=== PATIENT | female | born 1955 | race Hispanic/Latino ===

== ENCOUNTER 2017-04-08 13:07 | Emergency (ER) | payer BC, OTHER ==
[2017-04-08] MEDS ORDERED: ISOVUE-370 76%-LOCM 1 ML ONE (13:44)
[2017-04-08 13:48] LABS: #Basophils 0.1 thou/uL (0.0-0.2); #Eosinphils 0.1 thou/uL (0.0-0.7); #Lymphocytes 2.9 thou/uL (1.20-3.40); #Monocytes 0.5 thou/uL (0.11-0.59); #Neutrophils 6.1 thou/uL (1.40-6.50); %Basophils 0.7 % (0.0-1.0); %Eosinophils 1.4 % (0.0-10.0); %Lymphocytes 29.7 % (21.0-51.0); %Monocytes 5.5 % (0.0-10.0); %Neutrophils 62.6 % (42.0-75.0); Hemoglobin 13.9 g/dL (12.0-16.0); Mean Corpuscular HGB CONC 34.6 g/dL (32.0-36.0); Mean Corpuscular Hemoglobin 30.8 pg (27.0-31.0); Mean Corpuscular Volume 89.1 fl (81.0-99.0); Mean Platelet Volume 7.4 fL (7.4-10.4); Platelet Count 260 thou/uL (130-400); RBC Distribution Width 11.6 % (11.5-14.5); White Blood Cell (WBC) Count 9.7 thou/uL (4.8-10.8)
[2017-04-08 13:48] LABS: Bilirubin Negative (Negative); Blood, Urine Negative (Negative); Clarity CLEAR (Clear); Glucose, Urine (Dipstick) Negative (Negative); Leukocyte Trace (Negative); Nitrite Negative (Negative); Protein, Urine (Dipstick) Negative (Neg-Trace); Specific Gravity, Urine 1.019 (1.002-1.036)
[2017-04-08 13:50] LABS: Bacteria/HPF None Seen HPF (None Seen); Hyaline Casts/LPF 4-6 HYALINE CAST LPF (0-3 Hyaline); Pathc Cast-AUWi Flag 0.54 (0-2.49); Squamous Epithelial 0-3 HPF (0-3)
[2017-04-08 14:09] LABS: ALT (SGPT) 35 U/L (8-55); AST (SGOT) 25 U/L (5-34); Albumin 4.2 g/dL (3.4-4.8); Alkaline Phosphatase 76 U/L (40-150); Anion Gap 13 mmol/L (10-20); BUN (Urea Nitrogen) 10 mg/dL (9.8-20.1); Bilirubin, Total 0.9 mg/dL (0.2-1.2); Calc. Creatinine Clearance 0 mL/min (70-130); Calcium 9.8 mg/dL (7.8-10.44); Carbon Dioxide 30 mmol/L (23-31); Chloride 99 mmol/L (98-107); Estimated GFR-MDRD 89; Globulin 3.5 g/dL (2.4-3.5); Glucose 152 mg/dL (80-115); Potassium 3.3 mmol/L (3.5-5.1); Protein, Total 7.7 g/dL (6.0-8.3); Sodium 139 mmol/L (136-145)
[2017-04-08] MEDS ORDERED: Ondansetron HCl/PF 4 MG/2 ML Vial ONE (17:27)
--- NOTE | 2017-04-08 19:14 | CT ---
CT ABDOMEN AND PELVIS WITH CONTRAST: Technique: Multiple axial tomograms were obtained through the abdomen and pelvis with IV enhancement. History: Lower abdominal pain. FINDINGS: Lung bases are clear. The liver shows evidence of fatty infiltration. The spleen and pancreas are unremarkable. The stomach and duodenum are unremarkable. The adrenal glands are unremarkable. The kidneys are unremarkable. No hydronephrosis. Ureters appear normal. Urinary bladder unremarkable. Small bowel loops are normal caliber. Appendix is not identified and may be surgically absent. The pa tient is post cholecystectomy. Aorta normal caliber. No adenopathy identified. Images through the pelvis reveal an abnormal appearing uterus. The endometrium and endometrial cavity appears enlarged and is diffusely low attenuation which suggests possible blood product within the d ilated endometrial cavity. Endometrial sampling should be considered. The uterus fund appears enlarge d. The uterine fundus appears enlarged. Ovaries appear unremarkable. IMPRESSION: Abnormal uterus. The uterus is enlarged and endometrial cavity appears enlarged and shows no accumula tion as discussed above. Recommend PAINT STOCK CLERK consultation. Pelvic ultrasound is suggested. POS: JAZMYN
[2017-04-08] MEDS ORDERED: Fentanyl 100 MCG/2 ML VIAL ONE (19:19)
--- NOTE | 2017-04-08 20:37 | ULT ---
PELVIC ULTRASOUND: Technique: Transabdominal and endovaginal ultrasound of the pelvis performed. History: Exam is performed in follow up to the CT abdomen/pelvis which showed an abnormal appearing u terus and endometrium. FINDINGS: On ultrasound the uterine measurements are within normal range recorded at approximately 6.0 x 2.0 x 3.5 cm. The endometrium does appear prominent. It is poorly defined but is diffusely increased, proba alirio measuring in the 1.2 cm range. This may explain the diffuse decreased density noted in the endome trium on CT. There is a well defined hypoechoic mass like area in the lower uterine segment which cou ld represent a collection of complex blood or fluid. The right ovary is identified and appears unremarkable. Color doppler with spectral analysis shows fl ow to this ovary. The left ovary is not identified. IMPRESSION: Endometrium appears abnormal and there is a loculated complex fluid collection or hypoechoic mass les ion in the lower uterine segment. Recommend HAND FINISHER consultation and consider further evaluation of the p angel with MRI of pelvis. POS: JAZMYN
== END 2017-04-08 20:10 | disposition home or self-care (01) ==
LOC: ERS 13:07
DX: N39.0 Urinary tract infection, site not specified (principal); N85.8 Other specified noninflammatory disorders of uterus; I10 Essential (primary) hypertension; M81.0 Age-related osteoporosis without current pathological fracture; F17.210 Nicotine dependence, cigarettes, uncomplicated
CPT/HCPCS: 36415; 74177; 76856; 80053; 81003; 81015; 85025; 87086; 96361; 96374; 96375; J2270; J2405; J3010

== ENCOUNTER 2018-07-20 11:26 | Observation (INO) | payer OTHER ==
[2018-07-20 12:13] LABS: #Basophils 0.1 thou/uL (0.0-0.2); #Eosinphils 0.2 thou/uL (0.0-0.7); #Lymphocytes 3.2 thou/uL (1.20-3.40); #Monocytes 0.7 thou/uL (0.11-0.59); #Neutrophils 5.9 thou/uL (1.40-6.50); %Basophils 0.8 % (0.0-1.0); %Eosinophils 2.2 % (0.0-10.0); %Monocytes 6.5 % (0.0-10.0); %Neutrophils 58.5 % (42.0-75.0); Hemoglobin 14.3 g/dL (12.0-16.0); Mean Corpuscular HGB CONC 34.5 g/dL (32.0-36.0); Mean Corpuscular Hemoglobin 29.7 pg (27.0-31.0); Mean Platelet Volume 7.3 fL (7.4-10.4); Platelet Count 223 thou/uL (130-400); Red Blood Cell (RBC) Count 4.81 mill/uL (4.20-5.40); White Blood Cell (WBC) Count 10.1 thou/uL (4.8-10.8)
[2018-07-20] MEDS ORDERED: Nitroglycerin 0.4 MG TAB 1 EACH ONE (12:21)
[2018-07-20] MEDS ORDERED: Aspirin Chewable 81 MG TAB ONE (12:21)
--- NOTE | 2018-07-20 12:25 | RAD ---
Portable chest: HISTORY: Chest pain COMPARISON: none FINDINGS: Lung roth are clear. Heart and mediastinum appear unremarkable. Vascularity is normal. Visualized osseous structures unremarkable. IMPRESSION: No acute finding
[2018-07-20 12:34] LABS: ALT (SGPT) 28 U/L (8-55); AST (SGOT) 23 U/L (5-34); Alkaline Phosphatase 76 U/L (40-150); Anion Gap 14 mmol/L (10-20); BUN (Urea Nitrogen) 11 mg/dL (9.8-20.1); Bilirubin, Total 0.7 mg/dL (0.2-1.2); Calc. Creatinine Clearance 0 mL/min (70-130); Calcium 9.5 mg/dL (7.8-10.44); Carbon Dioxide 26 mmol/L (23-31); Chloride 104 mmol/L (98-107); Estimated GFR-MDRD 87; Globulin 2.9 g/dL (2.4-3.5); Glucose 169 mg/dL (80-115); Potassium 3.6 mmol/L (3.5-5.1); Protein, Total 6.9 g/dL (6.0-8.3); Sodium 140 mmol/L (136-145)
[2018-07-20] MEDS ORDERED: Ketorolac Tromethamine 30 MG/ML VIAL ONE (13:14)
[2018-07-20] MEDS ORDERED: Acetaminophen 325 MG TAB PO PRN (14:14)
--- NOTE | 2018-07-20 14:45 | RAD ---
TWO VIEW CHEST: HISTORY: Rales noted on physical exam. Chest pain. FINDINGS: Lung roth are clear. No infiltrate or effusion seen. Vasculature within normal range. Heart and mediastinum unremarkable and stable. No change from prior exam of 2015. IMPRESSION: No acute process. POS: OFF
[2018-07-20 15:00] VITALS: BMI 22.1
[2018-07-20 17:05] LABS: Troponin I Less than 0.010 ng/mL (< 0.028)
[2018-07-20 17:09] LABS: Cardiac Risk 5.5 (Less than 4.5); Cholesterol 177 mg/dl (< 200 Desired); HDL Cholesterol 32 mg/dL (>60 Neg Risk)
[2018-07-20 17:29] LABS: Triglycerides 589 mg/dL (Less than 150)
[2018-07-20 17:59] LABS: Troponin I Less than 0.010 ng/mL (< 0.028)
--- NOTE | 2018-07-20 19:09 | HP ---
CHIEF COMPLAINT: Chest pain. HISTORY OF PRESENT ILLNESS: This patient is a 62-year-old female, who was admitted here in August of 2015 with an episode of chest pain and fever. At that time, the patient had a stress test, which was unremarkable. The patient returns to the emergency department today with a complaint of chest pain. The patient states that, yesterday early in the day, she developed the onset of right parasternal chest pain and a "funny" sensation in the sternal area. She states that it feels a bit restricted when she tries to take a deep breath. She also has a mild cough that is wet but nonproductive. She has mild nausea. She describes the pain as a pressure-like sensation that is 10/10 at times. It has been fairly consistent, but slightly worse today than yesterday. It is positional and gets worse when she moves her torso [id number]. She also reports that she has been taking an anti-inflammatory for the last week, given to her by her physician. She believes it was meloxicam. Says that it also feels like she is having food stick in the epigastric area when she eats and her bowels have been a bit sluggish. She states that the pain radiates through to her mid back area at the same level. REVIEW OF SYSTEMS: As noted, the patient reported a flare of arthritis-type pain about a week ago. She reports occasional tingling in her hands. She also says that she occasionally has some blurry vision, and she reports that she does have a fair amount of stress that she and her have taken on the raising of a 6-year-old grandchild. PAST MEDICAL HISTORY: Hypertension. PAST SURGICAL HISTORY: Cholecystectomy. FAMILY HISTORY: Father had CHF and CVA. Mother of hepatitis. She has brothers with heart disease. Says there are number of extended family members who have had stroke. SOCIAL HISTORY: The patient occasionally smokes a cigarette, not daily. She occasionally has a small amount of alcohol, not routinely. She denies drugs. She is . She is full code. Her would be her surrogate decision maker. ALLERGIES: NONE. CURRENT MEDICATIONS: 1. Aspirin 81 mg p.o. daily. 2. Hydrochlorothiazide 12.5 mg one p.o. daily. PHYSICAL EXAMINATION: VITAL SIGNS: Blood pressure 125/63, pulse 72, respirations 16, temperature 98.6, and O2 saturation 95% on room air. GENERAL APPEARANCE: Age-appropriate female, in no distress. She is awake, alert, oriented, pleasant, and cooperative. HEENT: PERRL. No OP lesions. NECK: Supple and symmetric. No lymphadenopathy, JVD, or carotid bruits. HEART: Regular rate and rhythm without murmurs, gallops, or rubs. LUNGS: Reveal right basilar rales with no wheezes or rhonchi. Fair air exchange. ABDOMEN: Soft, nondistended. There is very mild tenderness to palpation in the epigastrium. No hepatosplenomegaly. EXTREMITIES: No cyanosis, clubbing, or edema. MUSCULOSKELETAL: Reveals tenderness to palpation at the right parasternal border, which seems to reproduce the pain, the patient is describing. NEUROLOGIC: Appears to be fully intact. Spontaneously moving all extremities with normal sensation throughout. No focal deficits. PSYCHIATRIC: Normal affect and behavior. LABORATORY DATA: White count 10.1, hemoglobin 14.3. Sodium 140, potassium 3.6, chloride 104, CO2 is 26, BUN 11, creatinine 0.68, glucose 169, calcium 9.5, AST 23, and ALT 28. Troponin less than 0.01. Albumin 4.0. Chest x-ray shows no acute findings. EKG shows sinus rhythm at 72 beats per minute with no ST or T-wave changes. EMERGENCY ROOM COURSE: The patient received sublingual nitroglycerin, Toradol 15 mg IV x1, and aspirin 324 p.o. IMPRESSION AND PLAN: 1. Chest pain. The patient has a HEART score of 3. She did have some improvement with the nitroglycerin. Her symptoms appear to be largely musculoskeletal in nature and likely represent costochondritis. However, given her history of tobacco abuse and hypertension and her HEART score of 3, the patient will be placed on observation, remained on telemetry, and continued to have serial cardiac isoenzymes monitored. She had a dose of Toradol and she has been taking meloxicam over the past week, during time which this actually developed, making unlikely that further anti-inflammatories would be beneficial. She may also have a bit of gastritis or esophagitis, we will cover her with PPI as well. 2. Hypertension, well controlled. Continue her hydrochlorothiazide. 3. Mild hyperglycemia. We will recheck as this was not a fasting number, it is likely normal. 4. Abnormal lung exam with rales on the right base. The patient does have a bit of a cough that she describes as wet, but nonproductive as well. We will go ahead and cover with some oral antibiotics. Job ID: [id number]
[2018-07-20] MEDS: Cefdinir 300 MG CAP PO SCH (21:03)
[2018-07-21 05:12] LABS: #Basophils 0.1 thou/uL (0.0-0.2); #Eosinphils 0.3 thou/uL (0.0-0.7); #Lymphocytes 3.4 thou/uL (1.20-3.40); #Monocytes 0.5 thou/uL (0.11-0.59); #Neutrophils 5.2 thou/uL (1.40-6.50); %Basophils 1.2 % (0.0-1.0); %Eosinophils 3.3 % (0.0-10.0); %Lymphocytes 35.5 % (21.0-51.0); %Monocytes 5.4 % (0.0-10.0); %Neutrophils 54.7 % (42.0-75.0); Hemoglobin 13.9 g/dL (12.0-16.0); Mean Corpuscular Hemoglobin 29.5 pg (27.0-31.0); Mean Corpuscular Volume 86.8 fL (78.0-98.0); Mean Platelet Volume 7.4 fL (7.4-10.4); Platelet Count 205 thou/uL (130-400); Red Blood Cell (RBC) Count 4.72 mill/uL (4.20-5.40); White Blood Cell (WBC) Count 9.5 thou/uL (4.8-10.8)
[2018-07-21 05:32] LABS: Anion Gap 11 mmol/L (10-20); BUN (Urea Nitrogen) 11 mg/dL (9.8-20.1); Calc. Creatinine Clearance 67 mL/min (70-130); Calcium 9.1 mg/dL (7.8-10.44); Carbon Dioxide 25 mmol/L (23-31); Chloride 108 mmol/L (98-107); Estimated GFR-MDRD 86; Glucose 132 mg/dL (80-115); Sodium 140 mmol/L (136-145)
[2018-07-21] MEDS: Cefdinir 300 MG CAP PO SCH (08:59)
[2018-07-21] MEDS ORDERED: DULoxetine 60 MG CAP PO SCH (09:00)
[2018-07-21] MEDS ORDERED: Hydrochlorothiazide 25 MG TAB PO SCH (09:00)
[2018-07-21] MEDS ORDERED: Aspirin 81 mg Enteric Coated Tablet PO SCH (09:00)
[2018-07-21] MEDS ORDERED: Enoxaparin Sodium 40 MG/0.4 ML SYRINGE SC SCH (09:00)
[2018-07-21] MEDS ORDERED: Fenofibrate Nanocrystallized 145 MG TAB PO SCH (09:00)
[2018-07-21] MEDS ORDERED: ADENOSINE 60 MG/20 ML VIAL ONE (11:03)
--- NOTE | 2018-07-21 12:42 | NM ---
CARDIAC SPECT: CLINICAL HISTORY: 62-year-old female with chest pain, hypertension, smoker, and family history of coronary artery disea se. TECHNIQUE: A myocardial perfusion scan was performed using the single isotope one day protocol with technetium-9 9m sestamibi. 9 mCi were injected intravenously for the rest exam followed by 30 mCi for the stress e xam. Pharmacologic stress with Adenosine was monitored and interpreted by Dr. Clements. FINDINGS: Homogeneous tracer distribution is seen in the myocardial segments on stress and rest images without fixed or reversible defects. GATED SPECT LVEF: 58%. WALL MOTION EXAM: Normal. IMPRESSION: Normal myocardial perfusion scan. POS: TPC
[2018-07-21 13:39] VITALS: BP 153/80; TEMP 98.5
--- NOTE | 2018-07-21 23:53 | DIS ---
DATE OF ADMISSION: 07/20/2018 DATE OF DISCHARGE: 07/21/2018 CONDITION: At the time of discharge, stable and improved. DISCHARGE DIAGNOSES: 1. Chest pain, noncardiac, likely musculoskeletal. Acute coronary syndrome ruled out. 2. Hypertension. 3. Mild hyperglycemia. DISCHARGE MEDICATIONS: New medication Omnicef 300 mg p.o. b.i.d., TriCor 145 mg daily, Protonix 40 mg daily. Resume home medications as follows: 1. Aspirin 81 mg daily. 2. Hydrochlorothiazide 25 mg daily. 3. Amlodipine 5 mg daily. 4. [place]-3 fish oil 300 mg daily. 5. Cymbalta 60 mg daily. 6. Meloxicam 15 mg daily. PRIMARY CARE PHYSICIAN: Dr. Frank Aguayo. PROCEDURES DONE IN THE HOSPITAL: 1. Chest x-ray upon presentation which is negative for any evidence of pneumonia, edema, or effusion. 2. Nuclear medicine stress test which is negative for any evidence of fixed or reversible defect. EF estimated at 58%. HISTORY OF PRESENTING ILLNESS: Ms. Shen is a 62-year-old female with past medical history of hypertension, recent diagnosis of inflammatory arthritis, starting on meloxicam one week ago, who presented to the emergency room with complaints of chest pain which was 10/10 in intensity. It was associated with some mild nonproductive cough and was rather positional. She also had the feeling of heartburn and feeling that food gets stuck in her throat. Upon presentation, she was hemodynamically stable. Her labs were within normal limit. Cardiac enzymes were negative and chest x-ray was stable. She was admitted with a presumptive diagnosis of chest pain, rule out ACS. Please see admission history and physical dictated by Dr. Castro from yesterday. HOSPITAL COURSE: The patient remained stable throughout the rest of her hospitalization. She was started empirically on oral antibiotics given her cough thinking that it might be some acute upper respiratory tract infection. Nuclear medicine stress test was ordered, which was negative for any evidence of ACS. EF was 58%. Lipid panel was checked and triglycerides were very high at 589. Even though the patient has been taking fish oil for quite some time, she has hypertriglyceridemia which is a risk factor in addition to hypertension, age, and female sex that she has already. She was started on TriCor and was educated about the side effects. She is encouraged to follow up with her primary care physician, Dr. Frank Aguayo for followup. Repeat lipid panel should be checked within the next 3 months. She is also being started on proton pump inhibitors given the fact that she is on meloxicam for her inflammatory arthritis and she has been having some symptoms to suggest gastroesophageal reflux disease. She was seen and examined prior to discharge. PHYSICAL EXAMINATION: VITAL SIGNS: This morning, temperature 98.5, pulse of 70, respirations 24, saturating 96% on room air, blood pressure 153/80. GENERAL: No acute distress. Awake, alert, and oriented x3. CHEST: Clear to auscultation bilaterally. CARDIAC: Rate and rhythm regular. She will be discharged back home. Job ID: [id number]
[2018-07-22] MEDS ORDERED: DULoxetine 60 MG CAP PO SCH (09:00)
== END 2018-07-21 14:08 | disposition home or self-care (01) ==
LOC: ERS 11:26 → 2SW 13:07
PROVIDERS: ADMIT Internal Medicine; ATTEND Internal Medicine
DX: R07.89 Other chest pain (principal); I10 Essential (primary) hypertension; R73.9 Hyperglycemia, unspecified; M13.80 Other specified arthritis, unspecified site; F17.210 Nicotine dependence, cigarettes, uncomplicated; R09.89 Other specified symptoms and signs involving the circulatory and respiratory systems; Z79.1 Long term (current) use of non-steroidal anti-inflammatories (NSAID); Z79.82 Long term (current) use of aspirin; Z79.899 Other long term (current) drug therapy
CPT/HCPCS: 36415; 71045; 71046; 78452; 80048; 80053; 80061; 84484; 85025; 93005; 93017; 96372; 96374; A9500; G0378; J0153; J1650; J1885

== ENCOUNTER 2018-09-22 10:16 | Outpatient (CLI) | payer OTHER ==
--- NOTE | 2018-09-22 11:12 | MMO ---
Bilateral MAMMO Bilat Screen [facility]. CLINICAL HISTORY: Patient is 63 years old and is seen for screening. The patient has no family history of breast cancer. The patient has no personal history of cancer. VIEWS: The views performed were: bilateral craniocaudal with tomosynthesis; bilateral mediolateral oblique with tomosynthesis; and cleavage view with tomosynthesis. FILMS COMPARED: The present examination has been compared to prior imaging studies performed at [facility] on 12/25/2010, 02/16/2013, 10/04/2014 and 05/21/2016. MAMMOGRAM FINDINGS: There are scattered fibroglandular densities. There are benign appearing calcifications seen in the left breast. There are no suspicious masses, calcifications or architectural distortion in the right breast. There are no suspicious masses, suspicious calcifications, or new areas of architectural distortion. IMPRESSION: THERE IS NO MAMMOGRAPHIC EVIDENCE OF MALIGNANCY. A ROUTINE FOLLOW-UP MAMMOGRAM IN 1 YEAR IS RECOMMENDED. THE RESULTS OF THIS EXAM WERE SENT TO THE PATIENT. ACR BI-RADS Category 2 - Benign finding MAMMOGRAPHY NOTE: 1. A negative mammogram report should not delay a biopsy if a dominant of clinically suspicious mass is present. 2. Approximately 10% to 15% of breast cancers are not detected by mammography. 3. Adenosis and dense breasts may obscure an underlying neoplasm. Reported by: KRISTEN ACOSTA MD Electonically Signed: [id number]
== END 2018-09-22 10:17 | disposition home or self-care (01) ==
LOC: BICMAMMO 10:16
PROVIDERS: ATTEND Family Medicine
DX: Z12.31 Encounter for screening mammogram for malignant neoplasm of breast (principal)
CPT/HCPCS: 77063; 77067

== ENCOUNTER 2019-06-26 09:19 | Outpatient (CLI) | payer OTHER, MEDICARE ==
--- NOTE | 2019-06-26 10:28 | BD ---
DEXA SCAN: DATE: 06/26/2019. PROVIDED CLINICAL HISTORY: Osteoporosis. FINDINGS: Lumbar Spine: BMD (g/cm2) L1 0.750 T-Score: -2.2 L2 0.809 T-Score: -2.0 L3 0.754 T-Score: -3.0 L4 0.853 T-Score: -1.9 L1-L4 0.796 T-Score: -2.3 Left: Femoral Neck: 0.602 T-Score: -2.2 Total Femur: 0.883 T-Score: -0.5 Right: Femoral Neck: 0.603 T-Score: -2.2 Total Femur: 0.864 T-Score: -0.6 10-YEAR FRACTURE RISK: Major osteoporotic fracture 6.2%. Hip fracture 1.1%. Impression: Calculated bone mineral density meets WHO criteria for osteopenia and places the patient at increased risk for fracture. POS: MICHELLE
--- NOTE | 2019-06-26 10:35 | RAD ---
THORACIC SPINE RADIOGRAPHS 2 VIEWS: DATE: 06/26/2019. PROVIDED CLINICAL HISTORY: Age-related osteoporosis. FINDINGS: Thoracic alignment appears normal. Vertebral body heights are clear. Vascular calcification is seen . Pedicles appear intact. Mild multilevel thoracic disk degenerative changes are seen. IMPRESSION: Mild multilevel thoracic disk degenerative change. POS: MICHELLE
== END 2019-06-26 09:20 | disposition home or self-care (01) ==
LOC: BICMAMMO 09:19
PROVIDERS: ATTEND Internal Medicine Rheumatology
DX: M81.0 Age-related osteoporosis without current pathological fracture (principal); M51.34 Other intervertebral disc degeneration, thoracic region; M85.89 Other specified disorders of bone density and structure, multiple sites
CPT/HCPCS: 72070; 77080

== ENCOUNTER 2019-07-21 11:20 | Outpatient (CLI) | payer OTHER, MEDICARE ==
--- NOTE | 2019-07-21 12:29 | RAD ---
RADIOGRAPH CHEST 2 VIEWS: DATE: 07/21/2019 HISTORY: 63-year-old female with rheumatoid arthritis. Baseline chest radiograph for future comparison for ini tiation of new rheumatoid arthritis medication. FINDINGS: There is no airspace density, pulmonary edema, pleural effusion, pneumothorax, or cardiomegaly. IMPRESSION: No active cardiopulmonary disease.
== END 2019-07-21 11:21 | disposition home or self-care (01) ==
LOC: BICRAD 11:20
PROVIDERS: ATTEND Internal Medicine Rheumatology
DX: M05.79 Rheumatoid arthritis with rheumatoid factor of multiple sites without organ or systems involvement (principal)
CPT/HCPCS: 71046

== ENCOUNTER 2019-09-11 14:37 | Outpatient (CLI) | payer OTHER, MEDICARE ==
--- NOTE | 2019-09-11 15:41 | CT ---
CT ABDOMEN AND PELVIS WITH IV CONTRAST 09/11/2019 CLINICAL INFORMATION: Right-sided abdominal pain and bloating. Constipation. COMPARISON: 04/08/2017 Technique: Multiple contiguous axial CT images are obtained through the abdomen and pelvis with IV contrast. Cor onal reformatted images are provided. FINDINGS: Lower Chest: Lung bases are clear. Vessels: Vascular calcifications are again seen in the abdominal aorta and iliac arteries. Again, the re is suggestion of small varices within the left upper quadrant. Abdomen: Portal vein:Patent and is not dilated. Gallbladder: Surgically absent. Liver: Fatty infiltration. Liver is enlarged measuring 18.6 cm in craniocaudal dimensions. Spleen: within normal limits. Pancreas: within normal limits. Adrenals: within normal limits. Kidneys: Stable subcentimeter too small to characterize hypodense lesions in each kidney. Bowel: Normal caliber. Diminished attenuation is seen layering within the posterior aspect of the sto mach which is thought to be related to prior ingestion of a meal with contrast seen anteriorly. This does not have the appearance of bowel wall thickening. Appendix: Normal in caliber. Peritoneum: No ascites or free air; no fluid collection. Mesentery and Retroperitoneum: No enlarged mesenteric or retroperitoneal lymph nodes. Abdominal Wall: Focal area of asymmetry in the left breast inferiorly measuring 1.2 cm. However, timmy lar appearance was seen on the prior study in 2018, and this also appeared to been present on the study in 2009. This area would be better evaluated with mammography, but given stability over this pe riod of time suggests a benign finding and probably secondary to asymmetric breast parenchyma. Pelvis: Reproductive Organs: The diminished attenuation in the central uterus noted on the prior study is not evident on this exam. Pelvis within normal limits. Bladder: within normal limits. Bones: Degenerative changes are seen in the lower lumbar spine. IMPRESSION: 1. Hepatomegaly with fatty infiltration of the liver. 2. Stable small varices left upper quadrant unchanged since study in 2018 as well as CTA chest on 03/09. 3. Stable subcentimeter too small to characterize bilateral renal hypodense lesions. 4. Peripherally seen abnormality involving the uterus on prior exam is not appreciated on the current study. 5. Cholecystectomy. 6. No acute findings in the abdomen or pelvis.
== END 2019-09-11 14:38 | disposition home or self-care (01) ==
LOC: SCSCT 14:37
PROVIDERS: ATTEND Physician Assistant
DX: R10.11 Right upper quadrant pain (principal); K59.00 Constipation, unspecified; R14.0 Abdominal distension (gaseous); R16.0 Hepatomegaly, not elsewhere classified; K76.0 Fatty (change of) liver, not elsewhere classified; N28.9 Disorder of kidney and ureter, unspecified; N64.89 Other specified disorders of breast; Z90.49 Acquired absence of other specified parts of digestive tract
CPT/HCPCS: 74177

== ENCOUNTER 2020-03-11 09:51 | Outpatient (CLI) | payer OTHER, MEDICARE ==
--- NOTE | 2020-03-11 10:42 | ULT ---
Exam: Hepatic Doppler HISTORY: Hepatic steatosis. COMPARISON: None. FINDINGS: The head and proximal body of the pancreas have a normal echotexture. The remainder of the pancreas i s obscured by bowel gas. Heterogeneous echotexture of liver may be due to hepatic steatosis or hepatocellular disease. Subsequ ent limited evaluation for hepatic masses and intrahepatic biliary dilatation. The contour of the hepatic margin is maintained. Right hepatic lobe measures 18.6 cm. Common bile duct diameter is 1.2 cm. Gallbladder is not appreciated. Correlate for previous cholecyst ectomy. Spleen has a normal echotexture measuring 10.3 cm in maximum dimension. Hepatic Doppler: There is patency and appropriate directional flow involving the left hepatic vein, r ight hepatic vein, middle hepatic vein, main portal vein, right portal vein, left portal vein and hepatic artery. There is appropriate directional flow of the splenic vein and artery. IMPRESSION: 1. Normal hepatic Doppler. 2. Heterogeneous echotexture of the liver which is presumed to be due to hepatic steatosis. Transcribed Date/Time: 03/11/2020 11:38 AM
== END 2020-03-11 09:52 | disposition home or self-care (01) ==
LOC: BICULT 09:51
PROVIDERS: ATTEND Physician Assistant Medical
DX: K76.0 Fatty (change of) liver, not elsewhere classified (principal); R93.3 Abnormal findings on diagnostic imaging of other parts of digestive tract; R93.2 Abnormal findings on diagnostic imaging of liver and biliary tract
CPT/HCPCS: 76705

== ENCOUNTER 2020-03-15 11:48 | Outpatient (CLI) | payer OTHER, MEDICARE ==
--- NOTE | 2020-03-15 12:36 | MMO ---
Bilateral MAMMO Bilat Screen [facility]DI[facility]. CLINICAL HISTORY: Patient is 64 years old and is seen for screening. The patient has no family history of breast cancer. The patient has no personal history of cancer. VIEWS: The views performed were: bilateral craniocaudal with tomosynthesis and bilateral mediolateral oblique with tomosynthesis. FILMS COMPARED: The present examination has been compared to prior imaging studies performed at [facility] on 02/16/2013, 10/04/2014, 05/21/2016 and 09/22/2018. This study has been interpreted with the assistance of computer-aided detection. MAMMOGRAM FINDINGS: There are scattered fibroglandular densities. There are stable benign appearing calcifications seen in the left breast. There are no suspicious masses, suspicious calcifications, or new areas of architectural distortion. IMPRESSION: THERE IS NO MAMMOGRAPHIC EVIDENCE OF MALIGNANCY. A ROUTINE FOLLOW-UP MAMMOGRAM IN 1 YEAR IS RECOMMENDED. THE RESULTS OF THIS EXAM WERE SENT TO THE PATIENT. ACR BI-RADS Category 2 - Benign finding MAMMOGRAPHY NOTE: 1. A negative mammogram report should not delay a biopsy if a dominant of clinically suspicious mass is present. 2. Approximately 10% to 15% of breast cancers are not detected by mammography. 3. Adenosis and dense breasts may obscure an underlying neoplasm. Reported by: DARRYL SUBRAMANIAN MD Electonically Signed: [id number]
== END 2020-03-15 11:49 | disposition home or self-care (01) ==
LOC: BICMAMMO 11:48
PROVIDERS: ATTEND Family Medicine
DX: Z12.31 Encounter for screening mammogram for malignant neoplasm of breast (principal)
CPT/HCPCS: 77063; 77067

== ENCOUNTER 2020-05-04 14:33 | Emergency (ER) | payer MEDICARE, OTHER ==
--- NOTE | 2020-05-04 15:25 | RAD ---
CHEST TWO VIEW: 05/04/20 HISTORY: Dizziness. COMPARISON: Radiograph 07/21/19. FINDINGS: The lungs are clear. No pneumothorax or effusion. Multiple calcified left hilar lymph nodes. No acute osseous abnormality. IMPRESSION: No acute intrathoracic abnormality. POS: [facility]
[2020-05-04 15:26] LABS: #Basophils 0.1 thou/uL (0.0-0.2); #Eosinphils 0.2 thou/uL (0.0-0.7); #Lymphocytes 3.9 thou/uL (1.20-3.40); #Monocytes 0.7 thou/uL (0.11-0.59); #Neutrophils 5.6 thou/uL (1.40-6.50); %Monocytes 6.4 % (0.0-10.0); %Neutrophils 53.5 % (42.0-75.0); Hemoglobin 13.9 g/dL (12.0-16.0); Mean Corpuscular HGB CONC 32.7 g/dL (32.0-36.0); Mean Corpuscular Hemoglobin 27.9 pg (27.0-31.0); Mean Corpuscular Volume 85.4 fL (78.0-98.0); Mean Platelet Volume 7.8 fL (7.4-10.4); Platelet Count 279 thou/uL (130-400); RBC Distribution Width 12.1 % (11.5-14.5); Red Blood Cell (RBC) Count 4.97 mill/uL (4.20-5.40); White Blood Cell (WBC) Count 10.4 thou/uL (4.8-10.8)
[2020-05-04 15:40] LABS: ALT (SGPT) 27 U/L (8-55); AST (SGOT) 33 U/L (5-34); Alkaline Phosphatase 66 U/L (40-110); Anion Gap 13 mmol/L (10-20); BUN (Urea Nitrogen) 14 mg/dL (9.8-20.1); Bilirubin, Total 0.4 mg/dL (0.2-1.2); Calc. Creatinine Clearance 0 mL/min (70-130); Calcium 8.9 mg/dL (7.8-10.44); Carbon Dioxide 27 mmol/L (23-31); Chloride 106 mmol/L (98-107); Globulin 2.6 g/dL (2.4-3.5); Glucose 118 mg/dL (80-115); Potassium 3.5 mmol/L (3.5-5.1); Protein, Total 6.6 g/dL (5.8-8.1); Sodium 142 mmol/L (136-145)
--- NOTE | 2020-05-04 16:34 | CT ---
EXAM: CT brain without contrast HISTORY: Dizziness and chest pressure COMPARISON: 116 TECHNIQUE: Multiple contiguous axial images were obtained and a CT of the brain without contrast. FINDINGS: The brain is normal in morphology and attenuation without focal lesions or confluent areas of infarction. There is no evidence of hydrocephalus, intracranial hemorrhage, or extra-axial fluid collection. The calvarium and overlying soft tissues are unremarkable. The visualized paranasal sinuses and masto id air cells are well aerated. IMPRESSION: No evidence of acute intracranial abnormality
[2020-05-04] MEDS ORDERED: Aspirin 325 MG TAB ONE (16:58)
[2020-05-04] MEDS ORDERED: Meclizine HCl 25 MG TAB ONE (16:58)
[2020-05-04 17:50] LABS: Bilirubin Negative (Negative); Blood, Urine Negative (Negative); Clarity Clear (Clear); Glucose, Urine (Dipstick) Normal (Negative); Ketone, Urine Negative (Negative); Leukocyte Negative Leu/uL (Negative); Nitrite Negative (Negative); Protein, Urine (Dipstick) Negative (Neg-Trace); Specific Gravity, Urine 1.012 (1.002-1.036); Urobilinogen Normal mg/dL (Less than 2); pH, Urine 6.5 (5.0-9.0)
[2020-05-04] MEDS ORDERED: Diazepam 5 MG TAB ONE (18:16)
--- NOTE | 2020-05-07 10:30 | EKG ---
Test Reason : Blood Pressure : / mmHG Vent. Rate : 062 BPM Atrial Rate : 062 BPM P-R Int : 144 ms QRS Dur : 092 ms QT Int : 432 ms P-R-T Axes : 070 023 050 degrees QTc Int : 438 ms Normal sinus rhythm Normal ECG Confirmed by CLARK RIBEIRO, PAKO Felix ([id number]), business editor SHI THOMPSON ([id number]) on 05/07/2020 10:29:51 AM Referred By: Confirmed By:PAKO RODAS MD
== END 2020-05-04 19:09 | disposition home or self-care (01) ==
LOC: ERS 14:33
DX: H81.13 Benign paroxysmal vertigo, bilateral (principal); R29.700 NIHSS score 0; R07.89 Other chest pain; I10 Essential (primary) hypertension; Z79.899 Other long term (current) drug therapy; F17.210 Nicotine dependence, cigarettes, uncomplicated
CPT/HCPCS: 36415; 70450; 71046; 80053; 81003; 84484; 85025; 93005

== ENCOUNTER 2020-08-12 07:38 | Outpatient (CLI) | payer OTHER, MEDICARE | END 2020-08-12 07:39 | disposition home or self-care (01) | LOC: BICULT 07:38 | PROVIDERS: ATTEND Family Medicine | DX: R10.2 Pelvic and perineal pain (principal); N85.9 Noninflammatory disorder of uterus, unspecified | CPT/HCPCS: 76856 ==

== ENCOUNTER 2020-08-19 08:10 | Outpatient (CLI) | payer OTHER, MEDICARE | END 2020-08-19 08:11 | disposition home or self-care (01) | LOC: BICRAD 08:10 | PROVIDERS: ATTEND Internal Medicine Rheumatology | DX: M05.79 Rheumatoid arthritis with rheumatoid factor of multiple sites without organ or systems involvement (principal) | CPT/HCPCS: 71046 ==

== ENCOUNTER 2020-10-17 08:23 | Outpatient (CLI) | payer OTHER, MEDICARE | END 2020-10-17 08:24 | disposition home or self-care (01) | LOC: BICMAMMO 08:23 | PROVIDERS: ATTEND Internal Medicine Rheumatology | DX: M81.0 Age-related osteoporosis without current pathological fracture (principal) | CPT/HCPCS: 77080 ==

== ENCOUNTER 2020-10-29 19:12 | Inpatient (IN) | payer OTHER, MEDICARE ==
[~2020-10-29 19:12] MED LIST: Iopamidol-370 76% 500 ML 1 ML ONE
[2020-10-29 19:45] LABS: #Eosinphils 0.2 thou/uL (0.0-0.7); #Lymphocytes 2.5 thou/uL (1.20-3.40); #Monocytes 0.6 thou/uL (0.11-0.59); #Neutrophils 3.5 thou/uL (1.40-6.50); %Basophils 0.4 % (0.0-1.0); %Lymphocytes 36.8 % (21.0-51.0); %Monocytes 8.7 % (0.0-10.0); %Neutrophils 51.1 % (42.0-75.0); Hemoglobin 13.7 g/dL (12.0-16.0); Mean Corpuscular HGB CONC 35.6 g/dL (32.0-36.0); Mean Corpuscular Hemoglobin 30.4 pg (27.0-31.0); Mean Corpuscular Volume 85.3 fL (78.0-98.0); Mean Platelet Volume 7.5 fL (7.4-10.4); Platelet Count 233 thou/uL (130-400); RBC Distribution Width 11.5 % (11.5-14.5); Red Blood Cell (RBC) Count 4.51 mill/uL (4.20-5.40); White Blood Cell (WBC) Count 6.8 thou/uL (4.8-10.8)
[2020-10-29 20:03] LABS: ALT (SGPT) 14 U/L (8-55); AST (SGOT) 17 U/L (5-34); Albumin 4.2 g/dL (3.4-4.8); Alkaline Phosphatase 63 U/L (40-110); Anion Gap 13 mmol/L (10-20); BUN (Urea Nitrogen) 11 mg/dL (9.8-20.1); Bilirubin, Total 0.4 mg/dL (0.2-1.2); Calc. Creatinine Clearance 0 mL/min (70-130); Calcium 9.2 mg/dL (7.8-10.44); Carbon Dioxide 27 mmol/L (23-31); Chloride 104 mmol/L (98-107); Globulin 2.8 g/dL (2.4-3.5); Glucose 111 mg/dL (80-115); Potassium 3.6 mmol/L (3.5-5.1); Sodium 140 mmol/L (136-145)
[2020-10-29] MEDS ORDERED: Aspirin Chewable 81 MG TAB ONE (21:06)
[2020-10-29] MEDS ORDERED: Nitroglycerin 0.4 MG TAB 1 EACH ONE (21:06)
[2020-10-29] MEDS ORDERED: hydrALAZINE 20 MG/ML VIAL SLOW IVP PRN (22:24)
[2020-10-29] MEDS ORDERED: Zolpidem Tartrate 5 MG TAB PO PRN (22:25)
[2020-10-29] MEDS ORDERED: Bisacodyl 10 MG SUPP PR PRN (22:25)
[2020-10-29] MEDS ORDERED: Acetaminophen 325 MG TAB PO PRN (22:25)
[2020-10-29] MEDS ORDERED: Ibuprofen 200 MG TAB ONE (22:34)
[2020-10-29 23:20] LABS: Troponin I Less than 0.010 ng/mL (< 0.028)
[2020-10-30 00:16] VITALS: BMI 21.4
[2020-10-30 01:43] LABS: Troponin I Less than 0.010 ng/mL (< 0.028)
[2020-10-30 06:09] LABS: Albumin 3.8 g/dL (3.4-4.8); Anion Gap 12 mmol/L (10-20); BUN (Urea Nitrogen) 10 mg/dL (9.8-20.1); BUN/Creatinine Ratio 14.71; Calc. Creatinine Clearance 61 mL/min (70-130); Calcium 9.3 mg/dL (7.8-10.44); Carbon Dioxide 26 mmol/L (23-31); Chloride 107 mmol/L (98-107); Glucose 115 mg/dL (80-115); Potassium 3.6 mmol/L (3.5-5.1); Sodium 141 mmol/L (136-145)
[2020-10-30] MEDS ORDERED: Enoxaparin Sodium 40 MG/0.4 ML SYRINGE SC SCH (09:00)
[2020-10-30] MEDS: Amlodipine 10 MG TAB PO SCH (10:31)
[2020-10-30] MEDS: Aspirin Chewable 81 MG TAB PO SCH (10:32)
[2020-10-30] MEDS: DULoxetine 60 MG CAP PO SCH (10:32)
[2020-10-30] MEDS: Hydrochlorothiazide 25 MG TAB PO SCH (10:32)
[2020-10-30] MEDS: HYDROcodone/Acetaminophen 5/325 mg Tablet PO PRN (10:40)
[2020-10-30] MEDS ORDERED: Communication Order-Pharmacy FS SCH (12:45)
[2020-10-30] MEDS ORDERED: Potassium Chloride 20 MEQ TAB PO SCH (18:00)
[2020-10-30 18:47] LABS: SARS-CoV-2 PCR by NAA Not Detected (NotDetected)
[2020-10-30] MEDS ORDERED: Cyclobenzaprine 10 MG TAB PO PRN (19:13)
[2020-10-31] MEDS: Hydrochlorothiazide 25 MG TAB PO SCH (05:32)
[2020-10-31] MEDS: DULoxetine 60 MG CAP PO SCH (05:32)
[2020-10-31] MEDS: Aspirin Chewable 81 MG TAB PO SCH (05:32)
[2020-10-31] MEDS: Amlodipine 10 MG TAB PO SCH (05:32)
[2020-10-31] MEDS: HYDROcodone/Acetaminophen 5/325 mg Tablet PO PRN ×2 (07:49→17:17)
[2020-10-31] MEDS ORDERED: Iopamidol 370 76% 100 ML VIAL ONE (08:47)
[2020-10-31] MEDS ORDERED: Lidocaine 1% (PF) 30 ML VIAL ONE (11:22)
[2020-10-31] MEDS ORDERED: Midazolam HCl 2 mg/2 ml Vial ONE (11:50)
[2020-10-31] MEDS ORDERED: Fentanyl 100 MCG/2 ML VIAL ONE (11:50)
[2020-10-31] MEDS ORDERED: Acetaminophen/Codeine 30-300mg Tablet PO PRN (12:18)
[2020-10-31] MEDS ORDERED: Sodium Chloride 0.9% 200 ML IV PRN (12:18)
[2020-10-31] MEDS ORDERED: Sodium Chloride 0.9% 500 ML IV SCH (12:30)
[2020-10-31 13:15] VITALS: TEMP 98
[2020-10-31 15:48] VITALS: BP 114/76
== END 2020-10-31 18:25 | disposition home or self-care (01) | DRG 287 ==
LOC: ERS 19:12 → 3SE 22:09 → OBSVTOIN 10-31 13:41
PROVIDERS: ADMIT Internal Medicine; ATTEND Internal Medicine
PROC: 4A023N7 Measurement of Cardiac Sampling and Pressure, Left Heart, Percutaneous Approach (ICD-10-PCS; principal; 2020-10-31)
PROC: B2111ZZ Fluoroscopy of Multiple Coronary Arteries using Low Osmolar Contrast (ICD-10-PCS; 2020-10-31)
DX: I25.10 Atherosclerotic heart disease of native coronary artery without angina pectoris (principal); M19.90 Unspecified osteoarthritis, unspecified site; E87.6 Hypokalemia; I12.9 Hypertensive chronic kidney disease with stage 1 through stage 4 chronic kidney disease, or unspecified chronic kidney disease; N18.2 Chronic kidney disease, stage 2 (mild); Z20.822 Contact with and (suspected) exposure to COVID-19; G89.4 Chronic pain syndrome; K21.9 Gastro-esophageal reflux disease without esophagitis; Z79.82 Long term (current) use of aspirin; Z79.899 Other long term (current) drug therapy; Z87.891 Personal history of nicotine dependence; Z90.49 Acquired absence of other specified parts of digestive tract
CPT/HCPCS: 36415; 71045; 71275; 80053; 80069; 84443; 84484; 85025; 93005; 93458; 96372; 99152; G0378; J1650; J2001; J2250; J3010; J7030; Q9967; U0003; U0005

== ENCOUNTER 2021-07-05 07:09 | Outpatient (CLI) | payer BC, MEDICARE | END 2021-07-05 07:10 | disposition home or self-care (01) | LOC: BICULT 07:09 | PROVIDERS: ATTEND Physician Assistant Medical | DX: K76.0 Fatty (change of) liver, not elsewhere classified (principal); R10.31 Right lower quadrant pain; R93.2 Abnormal findings on diagnostic imaging of liver and biliary tract; Z90.49 Acquired absence of other specified parts of digestive tract | CPT/HCPCS: 76700 ==

== ENCOUNTER 2021-08-18 14:02 | Outpatient (CLI) | payer BC, MEDICARE | END 2021-08-18 14:03 | disposition home or self-care (01) | LOC: TBSIIMAG 14:02 | PROVIDERS: ATTEND Neurological Surgery | DX: M54.2 Cervicalgia (principal); M47.812 Spondylosis without myelopathy or radiculopathy, cervical region; M43.13 Spondylolisthesis, cervicothoracic region; M48.02 Spinal stenosis, cervical region | CPT/HCPCS: 72050; 72141 ==

== ENCOUNTER 2021-09-11 15:22 | Emergency (ER) | payer BC, MEDICARE ==
[2021-09-11] MEDS ORDERED: Iopamidol-370 76% 500 ML 1 ML ONE (15:50)
[2021-09-11 16:05] LABS: #Eosinphils 0.1 thou/uL (0.0-0.7); #Lymphocytes 1.3 thou/uL (1.20-3.40); #Monocytes 0.4 thou/uL (0.11-0.59); #Neutrophils 3.1 thou/uL (1.40-6.50); %Basophils 0.1 % (0.0-1.0); %Eosinophils 1.3 % (0.0-10.0); %Lymphocytes 26.3 % (21.0-51.0); %Neutrophils 64.4 % (42.0-75.0); Mean Corpuscular HGB CONC 33.9 g/dL (32.0-36.0); Mean Corpuscular Hemoglobin 29.5 pg (27.0-31.0); Mean Corpuscular Volume 86.8 fL (78.0-98.0); Mean Platelet Volume 7.4 fL (7.4-10.4); Platelet Count 276 thou/uL (130-400); RBC Distribution Width 11.6 % (11.5-14.5); Red Blood Cell (RBC) Count 5.08 mill/uL (4.20-5.40); White Blood Cell (WBC) Count 4.9 thou/uL (4.8-10.8)
[2021-09-11 16:26] LABS: ALT (SGPT) 31 U/L (8-55); AST (SGOT) 35 U/L (5-34); Albumin 4.1 g/dL (3.4-4.8); Alkaline Phosphatase 57 U/L (40-110); Anion Gap 18 mmol/L (10-20); BUN (Urea Nitrogen) 16 mg/dL (9.8-20.1); Bilirubin, Total 0.8 mg/dL (0.2-1.2); CK (CPK) 35 U/L (29-168); Calc. Creatinine Clearance 0 mL/min (70-130); Calcium 9.8 mg/dL (7.8-10.44); Carbon Dioxide 25 mmol/L (23-31); Chloride 98 mmol/L (98-107); Estimated GFR 85; Globulin 3.5 g/dL (2.4-3.5); Glucose 169 mg/dL (80-115); Lipase 18 U/L (8-78); Potassium 3.8 mmol/L (3.5-5.1); Protein, Total 7.6 g/dL (5.8-8.1); Sodium 137 mmol/L (136-145)
[2021-09-11] MEDS ORDERED: Cefepime 2 GM VIAL ONE (16:52)
[2021-09-11] MEDS ORDERED: Aspirin Chewable 81 MG TAB ONE (17:00)
[2021-09-11 17:01] LABS: Bilirubin Negative (Negative); Blood, Urine Negative (Negative); Clarity Clear (Clear); Glucose, Urine (Dipstick) Normal (Negative); Ketone, Urine Negative (Negative); Leukocyte 500 Leu/uL (Negative); Nitrite Negative (Negative); Protein, Urine (Dipstick) Negative (Neg-Trace); RBC/HPF 0-3 HPF (0-3); Specific Gravity, Urine 1.016 (1.002-1.036); Squamous Epithelial 0-3 HPF (0-3); Urobilinogen Normal mg/dL (Less than 2); pH, Urine 5.5 (5.0-9.0)
[2021-09-11 17:03] LABS: Bacteria/HPF 1+ HPF (None Seen)
[2021-09-11] MEDS ORDERED: Vancomycin 1 GM/200 ML BAG ONE (19:43)
[2021-09-11] MEDS ORDERED: Vancomycin 1 GM in Premix Bag 1 BAG IVPB SCH (20:00)
== END 2021-09-11 21:00 | disposition home or self-care (01) ==
LOC: ERS 15:22
DX: N39.0 Urinary tract infection, site not specified (principal); Z86.16 Personal history of COVID-19; K76.0 Fatty (change of) liver, not elsewhere classified; I10 Essential (primary) hypertension; M81.0 Age-related osteoporosis without current pathological fracture; M19.90 Unspecified osteoarthritis, unspecified site; E11.9 Type 2 diabetes mellitus without complications; Z87.891 Personal history of nicotine dependence; Z79.899 Other long term (current) drug therapy; Z79.891 Long term (current) use of opiate analgesic
CPT/HCPCS: 36415; 71045; 71275; 80053; 81003; 81015; 82550; 83605; 83690; 84484; 85025; 87040; 87086; 93005; 96374; 96375; J0692; J3370; Q9967

== ENCOUNTER 2021-11-01 14:55 | Outpatient (CLI) | payer MEDICARE, OTHER | END 2021-11-01 14:56 | disposition home or self-care (01) | LOC: BICRAD 14:55 | PROVIDERS: ATTEND Family Medicine | DX: Z01.818 Encounter for other preprocedural examination (principal) | CPT/HCPCS: 71046 ==

== ENCOUNTER 2021-11-27 09:36 | Outpatient (CLI) | payer MEDICARE ==
[2021-11-27 11:38] LABS: Hemoglobin 14.1 g/dL (12.0-15.5); Mean Corpuscular HGB CONC 33.9 g/dL (32.0-36.0); Mean Corpuscular Hemoglobin 28.2 pg (27.0-33.0); Mean Corpuscular Volume 83.2 fl (81.6-98.3); Mean Platelet Volume 10.7 fl (7.4-10.4); Platelet Count 274 10x3/uL (150-450); RBC Distribution Width 12.7 % (11.5-14.5); White Blood Cell (WBC) Count 7.5 10x3/uL (3.5-10.5)
[2021-11-27 12:17] LABS: PTT 28.9 sec (22.0-33.0); Prothrombin Time 10.5 sec (9.5-12.1)
[2021-11-27 12:30] LABS: Anion Gap 16 mmol/L (10-20); BUN (Urea Nitrogen) 9 mg/dL (9.8-20.1); Calc. Creatinine Clearance 0 mL/min (70-130); Calcium 10.4 mg/dL (7.8-10.44); Carbon Dioxide 26 mmol/L (23-31); Chloride 102 mmol/L (98-107); Estimated GFR 81; Glucose 210 mg/dL (80-115); Sodium 140 mmol/L (136-145)
== END 2021-11-27 09:37 | disposition home or self-care (01) ==
LOC: LABBT 09:36
PROVIDERS: ATTEND Neurological Surgery
DX: Z01.812 Encounter for preprocedural laboratory examination (principal)
CPT/HCPCS: 80048; 85027; 85610; 85730

== ENCOUNTER 2021-11-30 10:00 | Day surgery (SDC) | payer MEDICARE ==
[2021-11-29 12:53] VITALS: BMI 20.7
[2021-11-30] MEDS ORDERED: Neomycin-Polymyxin 1 ML AMP ONE (10:46)
[2021-11-30] MEDS ORDERED: Thrombin 5000 UNITS/5 ML VIAL ONE ×2 (10:46→14:32)
[2021-11-30] MEDS ORDERED: Midazolam HCl 2 mg/2 ml Vial ONE (12:03)
[2021-11-30] MEDS ORDERED: fentaNYL Citrate/PF 100 MCG/2 ML SYRINGE ONE ×2 (12:03→15:27)
[2021-11-30] MEDS ORDERED: HYDROmorphone 0.5 MG/0.5 ML SYRINGE ONE (12:04)
[2021-11-30] MEDS ORDERED: CEFAZOLIN 2 GM VIAL ONE (12:11)
[2021-11-30] MEDS ORDERED: Sodium Chloride 0.9% 100 ML ONE (12:11)
[2021-11-30] MEDS ORDERED: NEOSTIGMINE 3 MG/3 ML SYR 3 MG/3 ML SYRINGE ONE (12:23)
[2021-11-30] MEDS ORDERED: Phenylephrine 10 MG/ML VIAL ONE (12:23)
[2021-11-30] MEDS ORDERED: PROPOFOL 200 MG/20 ML VIAL ONE (12:23)
[2021-11-30] MEDS ORDERED: Glycopyrrolate 0.2 MG/ML 5 ML SYRINGE ONE (12:23)
[2021-11-30] MEDS ORDERED: Dexamethasone 20 MG/5 ML VIAL ONE (12:23)
[2021-11-30] MEDS ORDERED: Ondansetron PF 4 MG/2 ML Vial ONE (12:23)
[2021-11-30] MEDS ORDERED: Rocuronium Bromide 10 MG/ML (10ML VIAL) ONE (12:23)
== END 2021-11-30 17:40 | disposition home or self-care (01) ==
LOC: SDC 10:00
PROVIDERS: ATTEND Neurological Surgery
PROC: 0RG20A0 Fusion of 2 or more Cervical Vertebral Joints with Interbody Fusion Device, Anterior Approach, Anterior Column, Open Approach (ICD-10-PCS; principal; 2021-11-30)
PROC: 0RG2070 Fusion of 2 or more Cervical Vertebral Joints with Autologous Tissue Substitute, Anterior Approach, Anterior Column, Open Approach (ICD-10-PCS; 2021-11-30)
PROC: 0RT30ZZ Resection of Cervical Vertebral Disc, Open Approach (ICD-10-PCS; 2021-11-30)
DX: M50.022 Cervical disc disorder at C5-C6 level with myelopathy (principal); E11.9 Type 2 diabetes mellitus without complications; I10 Essential (primary) hypertension; M81.0 Age-related osteoporosis without current pathological fracture; Z79.82 Long term (current) use of aspirin; Z79.84 Long term (current) use of oral hypoglycemic drugs; Z79.899 Other long term (current) drug therapy
CPT/HCPCS: 76000; C1713; J0690; J1100; J1170; J2250; J2370; J2405; J2704; J3490

== ENCOUNTER 2022-01-21 00:28 | Emergency (ER) | payer MEDICARE, OTHER | END 2022-01-21 01:26 | disposition left against medical advice (07) | LOC: ERS 00:28 | DX: Z53.21 Procedure and treatment not carried out due to patient leaving prior to being seen by health care provider (principal) ==

== ENCOUNTER 2022-02-19 11:05 | Outpatient (CLI) | payer MEDICARE, OTHER | END 2022-02-19 11:06 | disposition home or self-care (01) | LOC: TBSIIMAG 11:05 | PROVIDERS: ATTEND Neurological Surgery | DX: M47.12 Other spondylosis with myelopathy, cervical region (principal); R29.890 Loss of height | CPT/HCPCS: 72040 ==

== ENCOUNTER 2022-05-02 12:43 | Outpatient (CLI) | payer MEDICARE ==
[~2022-05-02 12:43] MED LIST changes: -Iopamidol-370 76% 500 ML 1 ML ONE; +Magnevist 469MG/ML 20 ML VIAL ONE
== END 2022-05-02 12:44 | disposition home or self-care (01) ==
LOC: MRI 12:43
PROVIDERS: ATTEND Neurological Surgery
DX: D49.6 Neoplasm of unspecified behavior of brain (principal); G93.89 Other specified disorders of brain
CPT/HCPCS: 70553; 71046; A9579

== ENCOUNTER 2022-05-29 15:55 | Outpatient (CLI) | payer MEDICARE, OTHER | END 2022-05-29 15:56 | disposition home or self-care (01) | LOC: BICRAD 15:55 | PROVIDERS: ATTEND Family Medicine | DX: J40 Bronchitis, not specified as acute or chronic (principal); J98.4 Other disorders of lung; R63.4 Abnormal weight loss | CPT/HCPCS: 36415; 71046; 84443; 85025 ==

== ENCOUNTER 2022-06-15 14:51 | Outpatient (CLI) | payer MEDICARE, OTHER | END 2022-06-15 14:52 | disposition home or self-care (01) | LOC: BICCT 14:51 | PROVIDERS: ATTEND Family Medicine | DX: R91.8 Other nonspecific abnormal finding of lung field (principal); J98.11 Atelectasis | CPT/HCPCS: 71250 ==

== ENCOUNTER 2022-11-07 08:19 | Outpatient (CLI) | payer MEDICARE, OTHER | END 2022-11-07 08:20 | disposition home or self-care (01) | LOC: BICMAMMO 08:19 | PROVIDERS: ATTEND Internal Medicine Rheumatology | DX: M81.0 Age-related osteoporosis without current pathological fracture (principal); M85.851 Other specified disorders of bone density and structure, right thigh; M85.852 Other specified disorders of bone density and structure, left thigh | CPT/HCPCS: 77080 ==

== ENCOUNTER 2023-04-24 09:25 | Outpatient (CLI) | payer MEDICARE, OTHER | END 2023-04-24 09:26 | disposition home or self-care (01) | LOC: BICRAD 09:25 | PROVIDERS: ATTEND Internal Medicine Rheumatology | DX: M05.10 Rheumatoid lung disease with rheumatoid arthritis of unspecified site (principal); Z86.11 Personal history of tuberculosis | CPT/HCPCS: 71046 ==

== ENCOUNTER 2023-10-23 14:16 | Outpatient (CLI) | payer MEDICARE, OTHER ==
[2023-10-23 16:00] LABS: #Basophils 0.07 10x3/uL (0.0-0.2); %Basophils 0.8 % (0.0-1.0); %Eosinophils 2.1 % (0.0-10.0); %Lymphocytes 40.1 % (21.0-51.0); %Monocytes 6.6 % (0.0-10.0); %Neutrophils 50.3 % (42.0-75.0); Hematocrit 39.4 % (36.0-47.0); Hemoglobin 13.4 g/dL (12.0-16.0); Mean Corpuscular Hemoglobin 28.2 pg (27.0-31.0); Mean Corpuscular Volume 82.8 fL (78.0-98.0); Mean Platelet Volume 10.3 fL (7.4-10.4); Platelet Count 264 10x3/uL (130-400); RBC Distribution Width 12.9 % (11.5-14.5); Red Blood Cell (RBC) Count 4.76 mill/uL (4.20-5.40)
[2023-10-23 16:57] LABS: ALT (SGPT) 20 U/L (8-55); AST (SGOT) 24 U/L (5-34); Albumin 4.2 g/dL (3.4-4.8); Alkaline Phosphatase 44 U/L (40-110); Anion Gap 15 mmol/L (10-20); BUN (Urea Nitrogen) 9 mg/dL (9.8-20.1); Bilirubin, Direct 0.2 mg/dL (0.1-0.3); Bilirubin, Total 0.5 mg/dL (0.2-1.2); Calc. Creatinine Clearance 0 mL/min (70-130); Calcium 9.9 mg/dL (7.8-10.44); Carbon Dioxide 25 mmol/L (23-31); Chloride 103 mmol/L (98-107); Estimated GFR 84; Glucose 131 mg/dL (80-115); Potassium 3.5 mmol/L (3.5-5.1); Protein, Total 7.2 g/dL (5.8-8.1); Sodium 139 mmol/L (136-145)
== END 2023-10-23 14:17 | disposition home or self-care (01) ==
LOC: LABBT 14:16
PROVIDERS: ATTEND Internal Medicine Cardiovascular Disease
DX: Z01.818 Encounter for other preprocedural examination (principal)
CPT/HCPCS: 80053; 80076; 85025; 93005; 93010

== ENCOUNTER 2024-09-01 10:05 | Outpatient (CLI) | payer MEDICARE, OTHER | END 2024-09-01 10:06 | disposition home or self-care (01) | LOC: RAD 10:05 | PROVIDERS: ATTEND Internal Medicine | DX: R06.00 Dyspnea, unspecified (principal) | CPT/HCPCS: 71046 ==

== ENCOUNTER 2024-11-10 11:15 | Outpatient (CLI) | payer MEDICARE | END 2024-11-10 11:16 | disposition home or self-care (01) | LOC: BICMAMMO 11:15 | PROVIDERS: ATTEND Internal Medicine Rheumatology | DX: M81.0 Age-related osteoporosis without current pathological fracture (principal); M85.89 Other specified disorders of bone density and structure, multiple sites | CPT/HCPCS: 77080 ==